=== PATIENT | female | born 1965 | race Caucasian/White ===

== ENCOUNTER 2019-08-02 07:05 | Day surgery (SDC) | payer OTHER ==
[~2019-08-02] VITALS: Ht 160 cm; Wt 74.4 kg
[2019-08-02] MEDS ORDERED: LIDOCAINE 2% 100 MG/5 ML UJET TP ONE (07:41)
[2019-08-02] MEDS ORDERED: fentaNYL 0.05 MG/ML VIAL ONE (07:41)
[2019-08-02] MEDS ORDERED: fentaNYL 0.05 MG/ML VIAL IVP ONE (08:50)
== END 2019-08-02 09:39 | disposition home or self-care (01) ==
LOC: MDS 07:05 → MMU 07:06 → MDS 09:39
PROVIDERS: ATTEND Internal Medicine Gastroenterology
DX: Z12.11 Encounter for screening for malignant neoplasm of colon (principal); K62.89 Other specified diseases of anus and rectum; E66.3 Overweight; Z90.710 Acquired absence of both cervix and uterus; D12.4 Benign neoplasm of descending colon; K64.8 Other hemorrhoids
CPT/HCPCS: 45380; J3010